=== PATIENT | male | born 1980 | race Caucasian/White ===

== ENCOUNTER 2019-12-01 15:16 | Emergency (ER) | payer MEDICAID, SELFPAY ==
[2019-12-01 15:19] VITALS: BP 140/85; PULSE 98; RESP 20; TEMP 36.8; O2SAT 97
[2019-12-01 15:41] LABS: Bilirubin Negative (Negative); Blood Moderate (Negative); Clarity Clear (Clear); Glucose Negative (Negative); Ketones Negative (Negative); Leukocyte Esterase Negative (Negative); Nitrite Negative (Negative); Specific Gravity >= 1.030 (1.005-1.025); Urobilinogen 0.2 EU/dL (Up TO 0.2)
--- NOTE | 2019-12-01 15:41 | ED.GENADUL_ITS ---
Discharge Plan Disposition Patient Disposition: HOME Condition: Stable Discharge Details Chief Complaint: FlankPain Clinical Impression: Acute flank pain, Ureteral calculus, left Primary Care Provider: None,None ED Provider: Darrius Martinez Home Meds and New Rx's Prescriptions: New tamsulosin [Flomax] 0.4 mg capsule 0.4 mg PO DAILY Qty: 14 RF: 0 Discharge Instructions Instructions: Kidney Stones (ED), How to Strain Your Urine (ED) Additional Instructions: Please take ibuprofen over the counter. Take 600mg by mouth every 6 hours as needed for pain. Please take acetaminophen (tylenol) - 650mg every 6 hours by mouth as needed for pain. Please contact urology to arrange follow-up. Return to the ER for any worsening or new concerning symptoms. Referrals: Jalil Elise MD [ [facility] STAFF PHYSICIAN] - Discharge Data Discharge Date/Time-TO BE ENTERED AT DEPARTURE: 12/01/19 17:57 Medical Decision Making 1545: 39-year-old male here with sudden onset right flank pain and associated nausea vomiting. Patient has right CVA tenderness. Abdominal exam is benign. Concern for potential ureteral calculi. Patient has not had stones in the past. Consider obstructive process. Plan to obtain CT of the abdomen and pelvis. We will give Toradol 30 mg IM and Zofran p.o. 1649: CT of the abdomen pelvis was interpreted by radiology: IMPRESSION: 1. No evidence of appendicitis. 2. Minimal dilatation of the right pelvocaliceal system and ureter compared to the left. Sometimes this can be seen in pyelonephritis. The other possibility is there is a 4 mm calcification 1 cm posterior to the bladder that I believe is much more likely to be a phlebolith than a stone in the ureter but there is a small possibility this could be a stone in the ureter. Labs reviewed and urinalysis with 20-50 red blood cells, negative leukocyte esterase, negative nitrite, negative WBCs. Suspect renal stone. I will give Flomax. Patient was reassessed and pain significantly improved. Plan for outpatient follow-up with urology. HPI General Mode of arrival: ambulatory . Date/Time Provider Initiated Documentation: 12/01/19 15:30 . Limitations to Documentation: no limitations . Information obtained by: patient . HPI Narrative: 39-year-old male here with sudden onset right flank pain started just prior to arrival. Pain is severe and described as a burning. Pain initially located lower posterior right flank and radiating superiorly along his right flank. Patient notes associated nausea and vomiting. Denies abdominal pain. No urinary symptoms. Patient has never had similar pain in the past. No trauma. Related Data Home Medications Medication Instructions Recorded Confirmed tamsulosin [Flomax] 0.4 mg PO DAILY #14 cap 12/01/19 Previous Rx's Medication Instructions Recorded tamsulosin [Flomax] 0.4 mg PO DAILY #14 cap 12/01/19 Allergies Allergy/AdvReac Type Severity Reaction Status Date / Time No Known Allergies Allergy Unverified 12/01/19 15:25 General Stated Complaint: FlankPain PHILLY: 3 Review of Systems All systems reviewed & are unremarkable except as noted in HPI and below Constitutional Constitutional: Denies fever(s) Cardiovascular Cardiovascular: Denies dyspnea Respiratory Respiratory: Denies cough and Denies dyspnea Genitourinary Genitourinary: Denies dysuria FORMERLY [facility], 1928–1983 Medical History Hearing loss (Acute 01/21/15) Opioid/other drug depend, unspec (Acute) recent stay at [facility] but discharged because of active marijuana use [place] [facility] d/c 01/07/15 Osteoarthritis of cervical spine (Acute 10/14/15) Provoked seizures (Acute 02/26/15) Substance abuse (Acute 08/19/15) Surgical History Repair of umbilical hernia Family History Mother No problems noted. Father No problems noted. Grandfather Diabetes Social History Smoking/Tobacco Use Status: Never Alcohol Intake: current Alcohol type: beer Drug use: Daily Substance use type: marijuana Exam Const General: cooperative HENMT Mouth: moist mucous membranes Eyes Conjunctivae: normal conjunctivae Sclera: normal sclerae Neck Neck: trachea midline and supple Resp Auscultation: clear to auscultation bilaterally, no rales, no rhonchi and no wheezes Cardio Jugular venous pressure: no JVD Rate: regular rate and not tachycardic Rhythm: regular rhythm GI Palpation: soft, not firm, no guarding, no masses, not rigid and nontender Back/Spine/Pelvis Back: CVA tenderness (Right) Skin General skin exam: no rashes or lesions noted Neuro General: patient alert, patient awake and tone normal Extrem General: no edema Psych Appearance: grossly normal Mental Status: mental status grossly normal Course Vital Signs Vital signs: Vital Signs Temperature 36.8 C 12/01/19 15:19 Pulse 98 H 12/01/19 15:19 Respiratory Rate 20 12/01/19 15:19 Blood Pressure 140/85 12/01/19 15:19 Pulse Oximetry 97 12/01/19 15:19 Temperature 36.8 C 12/01/19 15:19 Temperature Source Skin 12/01/19 15:19 Pulse 98 H 12/01/19 15:19 Respiratory Rate 20 12/01/19 15:19 Respiratory Effort Non-Labored 12/01/19 15:24 Blood Pressure 140/85 12/01/19 15:19 Blood Pressure Position Sitting 12/01/19 15:19 Pulse Oximetry 97 12/01/19 15:19 Oxygen Delivery Method Trach Collar 12/01/19 15:19 Oxygen Flow Rate 0 12/01/19 15:19 Pain Level 8 12/01/19 15:19
[2019-12-01] MEDS: Ketorolac 30 MG/ML VIAL IM (15:42)
[2019-12-01] MEDS: Ondansetron O.D.T. 4 MG TABEF PO (15:43)
[2019-12-01 15:57] LABS: Bacteria Negative HPF (Negative); C & S Indicated? No; Casts Negative LPF (Negative); Crystals Many Calcium Oxalate HPF (Negative); Epithelial Cells Negative HPF (Negative); Mucus Negative (Negative); Other Cells Negative (Negative); RBC 20-50 HPF (0-2); WBC Negative HPF (0-5)
--- NOTE | 2019-12-01 16:00 | DI.CT_ITS ---
EXAM: CT RENAL COLIC WO CLINICAL HISTORY: right flank pain. TECHNIQUE: Imaging Protocol: Axial computed tomography images with coronal and sagittal reformatted images were created and reviewed. CONTRAST MATERIAL: Noncontrast COMPARISON: No exams were available for comparison FINDINGS: ABDOMEN: Lung Bases: Normal where visualized. Liver: Normal density. No measurable mass. Gallbladder and biliary tract: No radiodense calculus or dilation. Pancreas: Normal density, no abnormal calcifications or inflammatory process. Spleen: Normal. Kidneys: There is a question of mild asymmetric prominence of the right renal pelvis when compared wi th the left. This could be secondary to a recently passed stone or be within normal limits for this patient. The kidneys show normal size, contour and axis. No radiodense stones or obstructive uropath y. No masses seen. There is a retro aortic left renal vein. Adrenal glands: No masses seen. Abdominal Aorta: Abdominal portion non-dilated. PELVIS: Bladder: Symmetric distention, no gross wall thickening. Bowel: No obstruction or bowel wall thickening. No evidence of appendicitis. Peritoneal cavity: No ascites, collection or mesenteric inflammatory response. Bones: Degenerative disc changes. IMPRESSION: Question mild prominence of the right renal pelvis which could represent a recently passed stone. No renal, ureteral or bladder calculi are identified. DATA REPOSITORY: All CT scans at this facility are submitted to the National Radiology Data Registry (NRDR) Dose Index Registry (DIR) with the [employer] ([employer]). RADIATION OPTIMIZATION: All CT scans at this facility use at least one of these dose optimization te chniques: automated exposure control; mA and/or kV adjustment per patient size (includes targeted exa ms where dose is matched to clinical indication); or iterative reconstruction.
--- NOTE | 2019-12-01 16:20 | DI.VRAD_ITS ---
PROCEDURE INFORMATION: Exam: CT Abdomen And Pelvis Without Contrast Exam date and time: 12/01/2019 3:57 PM Age: 39 years old Clinical indication: Other: Right flank pain TECHNIQUE: Imaging protocol: Computed tomography of the abdomen and pelvis without contrast. Radiation optimization: All CT scans at this facility use at least one of these dose optimization techniques: automated exposure control; mA and/or kV adjustment per patient size (includes targeted exams where dose is matched to clinical indication); or iterative reconstruction. COMPARISON: No relevant prior studies available. FINDINGS: Liver: Normal. No mass. Gallbladder and bile ducts: Normal. No calcified stones. No ductal dilation. Pancreas: Normal. No ductal dilation. Spleen: Normal. No splenomegaly. Adrenals: Normal. No mass. Kidneys and ureters: No calculi are visible on either kidney. There is no hydronephrosis or abnormality of the left ureter. There is minimal dilatation of the right renal pelvis compared to the left. The right ureter is also mildly dilated compared to the left side down to the lower pelvis there is no evidence of a stone in the ureter. In the usual location in the pelvis just before turns anterior to the bladder the ureters somewhat difficult to separate from adjacent structures there are multiple calcifications in the area but these all appear to be outside of the bladder consistent with phleboliths. There is 1 4 mm calcification 1 cm posterior to the bladder. Stomach and bowel: Unremarkable. No obstruction. No mucosal thickening. Appendix: No evidence of appendicitis. Intraperitoneal space: Unremarkable. No free air. No significant fluid collection. Vasculature: No acute abnormality Lymph nodes: Unremarkable. No enlarged lymph nodes. Bladder: Urinary bladder is relatively collapsed no stone is seen within the bladder. Reproductive: Unremarkable as visualized. Bones/joints: Minimal old-appearing compression deformities of T11-T12 and L1 and L2. Disc spaces are fairly well preserved. Soft tissues: No soft tissue density is clearly seen entirely surrounding it. IMPRESSION: 1. No evidence of appendicitis. 2. Minimal dilatation of the right pelvocaliceal system and ureter compared to the left. Sometimes this can be seen in pyelonephritis. The other possibility is there is a 4 mm calcification 1 cm posterior to the bladder that I believe is much more likely to be a phlebolith than a stone in the ureter but there is a small possibility this could be a stone in the ureter. Dictated and Authenticated by: Lonny Moreno MD. Ordering:GABRIELE Rizo MD
[2019-12-01] MEDS: Tamsulosin 0.4 MG CAPCR PO (16:42)
== END 2019-12-01 17:57 | disposition home or self-care (01) ==
PROVIDERS: Emergency Provider Student in an Organized Health Care Education/Training Program
DX: N20.1 Calculus of ureter (principal); R11.0 Nausea
CPT/HCPCS: 96372; 99284; 74176; 81003; 81015; J1885